=== PATIENT | female | born 1955 | race American Indian/Alaskan Native ===

== ENCOUNTER 2017-03-18 07:19 | Inpatient (IN) | payer BC ==
[2017-03-18 09:04] LABS: Basophils % (Auto) 0.3 % (0.0-1.8); Eosinophils % (Auto) 0.5 % (0.0-4.3); Hematocrit 47.9 % (30.3-42.9); Hemoglobin 15.4 gm/dl (10.1-14.3); Mean Corpuscular HGB Conc 32 % (30-34); Mean Corpuscular Volume 75 fl (79-97); Platelet Count 396 K/mm3 (140-440); Red Blood Count 6.36 M/mm3 (3.65-5.03); Red Cell Distribution Width 14.8 % (13.2-15.2); White Blood Count 18.4 K/mm3 (4.5-11.0)
[2017-03-18 09:13] LABS: Mean Corpuscular Hemoglobin 24 pg (28-32)
[2017-03-18 09:22] LABS: Anion Gap 19 mmol/L; BUN/Creatinine Ratio 28.57; Blood Urea Nitrogen 20 mg/dL (7-17); Calcium 10.3 mg/dL (8.4-10.2); Carbon Dioxide 30 mmol/L (22-30); Chloride 93.9 mmol/L (98-107); Glucose 199 mg/dL (65-100); Potassium 3.6 mmol/L (3.6-5.0); Sodium 139 mmol/L (137-145)
[2017-03-18] MEDS ORDERED: NACL 0.9% 1000 ML 1,000 ML IV ONE ×2 (10:24→11:27)
[2017-03-18] MEDS ORDERED: ZOFRAN IV ONE (10:24)
[2017-03-18] MEDS ORDERED: DILAUDID IV ONE ×2 (10:24→13:50)
[2017-03-18] MEDS ORDERED: PEPCID IV ONE (10:25)
[2017-03-18] MEDS ORDERED: BENTYL IM ONE (10:25)
--- NOTE | 2017-03-18 10:26 | Emergency Department Report ---
ED General Adult HPI - General Chief complaint: Nausea/Vomiting/Diarrhea Stated complaint: ABD PAIN/DIARRHEA/NAUSEA/VOMITING Time Seen by Provider: 03/18/17 10:10 Source: patient, RN notes reviewed, old records reviewed Mode of arrival: Ambulatory Limitations: No Limitations - History of Present Illness Initial comments: This is a 61-year-old female. She is previously unknown to me. Her primary care doctor's Dr. Ballesteros. Past medical history includes COPD/asthma, hypertension, asthma, arthritis, history of hysterectomy. The patient presents to ER complaining of suprapubic and diffuse abdominal pain , nausea, vomiting and diarrhea. The pain started first, then was followed by watery/brown/green diarrhea, then followed by emesis, which is green, clear, and reddish. The pain has been constant for the past 3 days. It increases with palpation, and it decreases with rest. The patient also endorses some nonspecific chest tightness which has been present for the past 3 days. The tightness does not radiate to the back, arms or neck. -: Gradual Location: chest, abdomen Quality: aching Consistency: constant Improves with: rest Worsens with: movement Associated Symptoms: chest pain, loss of appetite, malaise, nausea/vomiting, weakness - Related Data Home Medications Medication Instructions Recorded Confirmed Last Taken ALPRAZolam [Xanax TAB] 1 mg PO QHS 03/18/17 03/18/17 03/17/17 Kbngr-Jgjcn-Phjk 5-160-25 mg 1 tab PO DAILY 03/18/17 03/18/17 03/17/17 Ibuprofen [Motrin] 800 mg PO Q8HR PRN 03/18/17 03/18/17 03/17/17 Tizanidine HCl [Zanaflex] 6 mg PO TID PRN 03/18/17 03/18/17 03/17/17 methylPREDNISolone [Medrol] 4 mg PO DAILY 03/18/17 03/18/17 03/17/17 oxyCODONE /ACETAMINOPHEN [Percocet 1 tab PO Q6HR PRN 03/18/17 03/18/17 03/17/17 5/325] traMADol [Ultram] 50 mg PO Q4HR PRN 03/18/17 03/18/17 03/17/17 Previous Rx's Medication Instructions Recorded Last Taken Type Montelukast [Singulair] 10 mg PO QHS #30 tablet 06/22/16 03/17/17 Rx Allergies Allergy/AdvReac Type Severity Reaction Status Date / Time amoxicillin trihydrate Allergy Vomiting Verified 06/07/14 08:09 [From Augmentin] morphine Allergy Headache Verified 06/07/14 08:09 potassium clavulanate Allergy Vomiting Verified 06/07/14 08:09 [From Augmentin] ED Review of Systems ROS: Stated complaint: ABD PAIN/DIARRHEA/NAUSEA/VOMITING Other details as noted in HPI Constitutional: malaise, weakness Eyes: denies: vision change Respiratory: cough Cardiovascular: chest pain Gastrointestinal: abdominal pain, nausea, vomiting, diarrhea Genitourinary: denies: dysuria Musculoskeletal: arthralgia, myalgia Neurological: weakness. denies: as per HPI ED Past Medical Hx - Past Medical History Previous Medical History?: Yes Hx Hypertension: Yes Hx Congestive Heart Failure: No Hx Diabetes: No Hx Arthritis: Yes Hx Asthma: Yes Additional medical history: Right ovarian cyst - Surgical History Past Surgical History?: Yes Hx Appendectomy: Yes Additional Surgical History: Bilateral hip replacement; revision left hip replacement; hysterectomy - Social History Smoking Status: Former Smoker Substance Use Type: Non Opiate Pain, Prescribed - Medications Home Medications: Home Medications Medication Instructions Recorded Confirmed Last Taken Type Montelukast [Singulair] 10 mg PO QHS #30 tablet 06/22/16 03/18/17 03/17/17 Rx ALPRAZolam [Xanax TAB] 1 mg PO QHS 03/18/17 03/18/17 03/17/17 History Htkfh-Zxcre-Iage 5-160-25 mg 1 tab PO DAILY 03/18/17 03/18/17 03/17/17 History Ibuprofen [Motrin] 800 mg PO Q8HR PRN 03/18/17 03/18/17 03/17/17 History Tizanidine HCl [Zanaflex] 6 mg PO TID PRN 03/18/17 03/18/17 03/17/17 History methylPREDNISolone [Medrol] 4 mg PO DAILY 03/18/17 03/18/17 03/17/17 History oxyCODONE /ACETAMINOPHEN [Percocet 1 tab PO Q6HR PRN 03/18/17 03/18/17 03/17/17 History 5/325] traMADol [Ultram] 50 mg PO Q4HR PRN 03/18/17 03/18/17 03/17/17 History ED Physical Exam - General Limitations: No Limitations General appearance: alert, in no apparent distress - Head Head exam: Present: atraumatic, normocephalic - Eye Eye exam: Present: normal appearance - ENT ENT exam: Present: normal exam, normal orophraynx, mucous membranes moist - Neck Neck exam: Present: normal inspection, full ROM. Absent: tenderness, meningismus - Respiratory Respiratory exam: Present: normal lung sounds bilaterally. Absent: respiratory distress, wheezes, rales, rhonchi, stridor, chest wall tenderness - Cardiovascular Cardiovascular Exam: Present: normal rhythm, tachycardia, normal heart sounds. Absent: systolic murmur, diastolic murmur, rubs, gallop - GI/Abdominal GI/Abdominal exam: Present: soft, tenderness, normal bowel sounds. Absent: distended, guarding, rebound, rigid, pulsatile mass - Extremities Exam Extremities exam: Present: normal inspection, full ROM, normal capillary refill. Absent: pedal edema, joint swelling, calf tenderness - Back Exam Back exam: Present: normal inspection, full ROM. Absent: tenderness, CVA tenderness (R), CVA tenderness (L), muscle spasm, paraspinal tenderness, vertebral tenderness - Neurological Exam Neurological exam: Present: alert, oriented X3, normal gait, other (Extraocular movements intact. Tongue midline. No facial droop. Facial sensation intact to light touch in the V1, V2, V3 distribution bilaterally. 5 and 5 strength in 4 extremities.. Sensation is intact to light touch in 4 extremities.). Absent : motor sensory deficit - Psychiatric Psychiatric exam: Present: normal affect, normal mood - Skin Skin exam: Present: warm, dry, intact, normal color. Absent: rash ED Course Vital Signs 03/18/17 03/18/17 03/18/17 08:02 10:03 10:10 Temperature 98.9 F Pulse Rate 128 H 124 H 127 H Respiratory 18 17 16 Rate Blood Pressure 153/107 154/98 O2 Sat by Pulse 98 94 96 Oximetry 03/18/17 03/18/17 03/18/17 10:20 10:30 10:40 Temperature Pulse Rate 123 H 122 H Respiratory 15 18 Rate Blood Pressure 154/98 154/98 154/98 O2 Sat by Pulse 94 95 91 Oximetry 03/18/17 03/18/17 03/18/17 10:59 11:27 11:30 Temperature Pulse Rate 112 H 105 H Respiratory 18 17 13 Rate Blood Pressure 136/81 148/92 O2 Sat by Pulse 98 93 96 Oximetry 03/18/17 03/18/17 03/18/17 11:40 11:50 12:00 Temperature Pulse Rate 101 H 101 H 108 H Respiratory 18 13 Rate Blood Pressure 148/92 148/92 O2 Sat by Pulse 95 98 95 Oximetry 03/18/17 03/18/17 03/18/17 12:10 12:20 12:30 Temperature Pulse Rate 101 H 101 H 99 H Respiratory 16 18 15 Rate Blood Pressure O2 Sat by Pulse 97 96 96 Oximetry 03/18/17 03/18/17 03/18/17 12:40 12:50 13:00 Temperature Pulse Rate 98 H 103 H 105 H Respiratory 13 16 13 Rate Blood Pressure 148/92 148/92 O2 Sat by Pulse 97 96 98 Oximetry 03/18/17 03/18/17 03/18/17 14:00 15:00 16:00 Temperature Pulse Rate 112 H 100 H 99 H Respiratory 13 16 12 Rate Blood Pressure 152/89 130/86 121/73 O2 Sat by Pulse 92 95 97 Oximetry - Reevaluation(s) Reevaluation #1: 03/18/17 11:24 Differential diagnosis: Colitis, diverticulitis, urinary tract infection, appendicitis, perforated viscus, pneumonia, pulmonary embolus, acute coronary syndrome Assessment and plan: 61-year-old female with diffuse abdominal pain, nausea, vomiting, diarrhea, leukocytosis and tachycardia. She meets systemic inflammatory response syndrome criteria. Nonspecific chest pain as well. EKG abnormal, appears unchanged from prior, patient will be given normal saline, pain medication, nausea medication, x-ray of the chest is negative, lactic acid within normal limits, CT scan of the chest pending, CT scan of the abdomen and pelvis pending plan to admit for chest pain, systemic inflammatory response syndrome. 03/18/17 11:26 Reevaluation #2: 03/18/17 12:48 CT scan shows no pulmonary embolus or DVT/pneumonia. CT scan of the abdomen and pelvis demonstrates enteritis versus ileus versus nonspecific inflammatory process. Tachycardia still present although resolving. Pain is improved. Case is presented to the Hospital physician, Dr. Loaiza, who accepts patient Reevaluation #3: 03/18/17 13:46 As per patient request, I have contacted the primary care physician covering for her doctor, Dr. Oh, covering for Dr. Ballesteros. Dr. Ballesteros is out of town, and Dr. Oh is unable to admit the patient. He requested the hospital team admit the patient. The patient is informed ED Medical Decision Making - Lab Data Result diagrams: 03/18/17 08:43 03/18/17 08:43 Vital Signs 03/18/17 03/18/17 03/18/17 08:02 10:03 10:10 Temperature 98.9 F Pulse Rate 128 H 124 H 127 H Respiratory 18 17 16 Rate Blood Pressure 153/107 154/98 O2 Sat by Pulse 98 94 96 Oximetry 03/18/17 03/18/17 03/18/17 10:20 10:30 10:40 Temperature Pulse Rate 123 H 122 H Respiratory 15 18 Rate Blood Pressure 154/98 154/98 154/98 O2 Sat by Pulse 94 95 91 Oximetry 03/18/17 10:59 Temperature Pulse Rate Respiratory 18 Rate Blood Pressure O2 Sat by Pulse 98 Oximetry Lab Results 03/18/17 03/18/17 03/18/17 Range/Units 08:43 08:43 10:32 WBC 18.4 H (4.5-11.0) K/mm3 RBC 6.36 H (3.65-5.03) M/mm3 Hgb 15.4 H (10.1-14.3) gm/dl Hct 47.9 H (30.3-42.9) % MCV 75 L (79-97) fl MCH 24 L (28-32) pg MCHC 32 (30-34) % RDW 14.8 (13.2-15.2) % Plt Count 396 (140-440) K/mm3 Lymph % (Auto) 12.9 L (13.4-35.0) % Freestone % (Auto) 14.4 H (0.0-7.3) % Eos % (Auto) 0.5 (0.0-4.3) % Baso % (Auto) 0.3 (0.0-1.8) % Lymph # 2.4 (1.2-5.4) K/mm3 Freestone # 2.6 H (0.0-0.8) K/mm3 Eos # 0.1 (0.0-0.4) K/mm3 Baso # 0.1 (0.0-0.1) K/mm3 Seg Neutrophils % 71.9 H (40.0-70.0) % Seg Neutrophils # 13.2 H (1.8-7.7) K/mm3 PT 12.2 (12.2-14.9) Sec. INR 0.91 (0.87-1.13) Sodium 139 (137-145) mmol/L Potassium 3.6 (3.6-5.0) mmol/L Chloride 93.9 L (98-107) mmol/L Carbon Dioxide 30 (22-30) mmol/L Anion Gap 19 mmol/L BUN 20 H (7-17) mg/dL Creatinine 0.7 (0.7-1.2) mg/dL Estimated GFR > 60 ml/min BUN/Creatinine Ratio 28.57 % Glucose 199 H (65-100) mg/dL Lactic Acid (0.7-2.0) mmol/L Calcium 10.3 H (8.4-10.2) mg/dL Total Bilirubin (0.1-1.2) mg/dL AST (5-40) units/L ALT (7-56) units/L Alkaline Phosphatase (35-129) units/L Total Protein (6.3-8.2) g/dL Albumin (3.9-5) g/dL Albumin/Globulin Ratio % Lipase (13-60) units/L 03/18/17 03/18/17 Range/Units 10:32 10:40 WBC (4.5-11.0) K/mm3 RBC (3.65-5.03) M/mm3 Hgb (10.1-14.3) gm/dl Hct (30.3-42.9) % MCV (79-97) fl MCH (28-32) pg MCHC (30-34) % RDW (13.2-15.2) % Plt Count (140-440) K/mm3 Lymph % (Auto) (13.4-35.0) % Freestone % (Auto) (0.0-7.3) % Eos % (Auto) (0.0-4.3) % Baso % (Auto) (0.0-1.8) % Lymph # (1.2-5.4) K/mm3 Freestone # (0.0-0.8) K/mm3 Eos # (0.0-0.4) K/mm3 Baso # (0.0-0.1) K/mm3 Seg Neutrophils % (40.0-70.0) % Seg Neutrophils # (1.8-7.7) K/mm3 PT (12.2-14.9) Sec. INR (0.87-1.13) Sodium (137-145) mmol/L Potassium (3.6-5.0) mmol/L Chloride (98-107) mmol/L Carbon Dioxide (22-30) mmol/L Anion Gap mmol/L BUN (7-17) mg/dL Creatinine (0.7-1.2) mg/dL Estimated GFR ml/min BUN/Creatinine Ratio % Glucose (65-100) mg/dL Lactic Acid 2.00 (0.7-2.0) mmol/L Calcium (8.4-10.2) mg/dL Total Bilirubin 0.80 (0.1-1.2) mg/dL AST 23 (5-40) units/L ALT 34 (7-56) units/L Alkaline Phosphatase 129 (35-129) units/L Total Protein 8.8 H (6.3-8.2) g/dL Albumin 4.7 (3.9-5) g/dL Albumin/Globulin Ratio 1.1 % Lipase 10 L (13-60) units/L - EKG Data -: EKG Interpreted by Me Rate: tachycardia - EKG Data 03/18/17 11:27 sinus tachycardia, left axis deviation, left ventricular hypertrophy, left axis deviation, left anterior fascicular block, right bundle branch block, abnormal EKG, not morphologically consistent with STEMI, appears unchanged when compared to prior from 03/18/2017. - Radiology Data Radiology results: pending, image reviewed interpreted by me: X-ray the chest is negative. Critical care attestation.: If time is entered above; I have spent that time in minutes in the direct care of this critically ill patient, excluding procedure time. ED Disposition Clinical Impression: SIRS (systemic inflammatory response syndrome), Abdominal pain, Chest pain Disposition: OP ADMIT IP TO THIS HOSP Is pt being admited?: Yes Does the pt Need Aspirin: Yes Condition: Good
[2017-03-18] MEDS ORDERED: NACL ONE (10:41)
--- NOTE | 2017-03-18 11:06 | XRay Report ---
CHEST ONE VIEW INDICATION: Chest pain. COMPARISON: June 2016. FINDINGS: Portable, single, frontal chest radiograph demonstrates normal cardiomediastinal silhouette. Clear lungs. Thoracic spondylosis. Extrinsic EKG leads. CONCLUSION: No acute disease in the chest. Thank you for the opportunity to participate in this patient's care.
[2017-03-18 11:10] LABS: INR 0.91 (0.87-1.13)
[2017-03-18 11:15] LABS: Alanine Aminotransferase 34 units/L (7-56); Albumin 4.7 g/dL (3.9-5); Albumin/Globulin Ratio 1.1 %; Alkaline Phosphatase 129 units/L (35-129); Lipase 10 units/L (13-60); Total Protein 8.8 g/dL (6.3-8.2)
[2017-03-18] MEDS ORDERED: LEVAQUIN 750MG/150ML 750 MG/150 ML BAG IV ONE (11:28)
[2017-03-18 11:34] LABS: Bilirubin,Direct < 0.2 mg/dL (0-0.2)
[2017-03-18] MEDS ORDERED: FLAGYL 500 MG/100 ML 500 MG/100 ML BAG IV SCH (12:00)
--- NOTE | 2017-03-18 12:09 | Cat Scan Report ---
CTA CHEST CT ABDOMEN AND PELVIS WITH CONTRAST INDICATION: Chest pain. COMPARISON: 06/19/2016 chest CTA and 06/07/[address] FINDINGS: Abdomen and pelvis CT performed following intravenous administration of 100 cc of Omnipaque 300. CHEST: Stable heart size. Few coronary and aortic atherosclerotic calcifications. No effusion or size significant adenopathy. Patent central airway. No aortic aneurysm or dissection. No focal suspicious pulmonary arterial filling defects. Normal size thyroid, though heterogeneous with few small intrinsic hypodensities suspected measuring up to 4 mm in the isthmus. Slight bibasilar atelectasis. ABDOMEN: Much interval decrease in partly exophytic left hepatic hemangioma, now approximately 3.9 cm AP x 4.8 cm transverse, axial image 327, series 2 and 4.6 cm craniocaudal. No other focal suspicious hepatic or splenic lesions. No biliary dilatation. Left hepatic lobe tip extends well into the left upper quadrant. Numerous gallstones now contain air. Pancreas, adrenals, nonaneurysmal abdominal aorta with few atherosclerotic calcifications and IVC within normal limits. Nonhydronephrotic kidneys with few subcentimeter, indeterminate bilateral renal cortical hypodensities. No ascites or size significant adenopathy. Nonopacified GI tract evaluation limited. Fluid noted in the stomach and throughout small and large bowel. Proximal small bowel decompressed. Mid to distal small bowel though diffusely fluid-filled with caliber up to approximately 2.6 cm and mild wall prominence/thickening, greatest along the distal small bowel loops noted in the lower abdomen/pelvis as on axial image 532, series 2, amongst others. PELVIS: In addition to above, liquid contents also seen within nondistended rectosigmoid, suboptimally distended with slight exaggerated wall thickness. Bilateral hip arthroplasty streak artifact limits exam. Uterus surgically absent with few small pelvic phleboliths. Urinary bladder not adequately distended or assessed. No free fluid or significant adenopathy. Demineralized bones with multilevel spinal degenerative changes, including most spurring mid to lower thoracic with some disc degeneration/vacuum phenomena. Lower lumbar facet arthropathy as well. CONCLUSION: 1. No CT evidence of pulmonary embolism or significant acute chest process. 2. Long segment mid and distal small bowel wall thickening may represent ileitis, possibly infectious or inflammatory. Slight small bowel ileus may be developing. Entire bowel also noted fluid-filled, as described. 3. Regressing left hepatic exophytic hemangioma and interval development of air within known gallstones with various other incidental findings, as detailed above. Thank you for the opportunity to participate in this patient's care.
--- NOTE | 2017-03-18 12:21 | Admit Criteria Form ---
Admission Criteria Documentation: SEPSIS and OTHER FEBRILE ILLNESS, W/O FOCAL INFECTION Clinical Indications for Admission to Inpatient Care ( Place 'X' for any and all applicable criteria): Admission is indicated for ANY ONE of the following (1)(2)(3)(4): [X] I. Bacteremia [ ]II. Suspected or identified specific infection requiring hospitalization (eg, meningitis, endocarditis) [ ]III. Hemodynamic instability [ ]IV. Altered mental status [ ]V. Failure or unavailability of outpatient antimicrobial treatment [ ]. Hypoxemia [ ]VII. Seizures [ ]VIII. High-risk febrile neutropenia [ ]IX. Need for parenteral antibiotic in patient who is likely to abuse vascular access device (eg, injection drug user) [A](7) [ ]X. Temperature greater than 104.9 degrees F (40.5 degrees C) (oral) [X]XI. Inpatient admission required rather than observation care because of ANY ONE of the following: [X]1) Specific infection identified that is too severe for outpatient treatment or observation care trial [ ]2) Metabolic disorder (eg, hypoglycemia, hyperglycemia, metabolic acidosis) that is severe or persistent [ ]3) Temperature greater than 103.1 degrees F (39.5 degrees C) ( oral) that is not responsive to observation care treatment [ ]4) IV fluid to replace significant ongoing (eg, for over 24 hours) losses (> 3 L/m2 per day) [ ]5) Supplemental oxygen or respiratory treatments for over 24 hours that is performable only in acute inpatient setting [ ]6) Parenteral nutrition regimen need that must be implemented on inpatient basis [ ]7) Strict or protective (eg, laminar flow) isolation [X]8) Other condition, treatment or monitoring requiring inpatient admission Extended stay beyond goal length of stay may be needed for(1)(3) [ ]a) Sepsis or septic shock(22) [ ]b) Positive blood cultures [ ]c) Insufficient oral intake [ ]d) High-risk febrile neutropenia(29)(30) [ ]e) Continued fever and clinical instability [ ]f) Clinically active comorbid illness (e.g,heart failure, renal failure , diabetes) The original [facility] content created by [employer] has been revised. The portions of the content which have been revised are identified through the use of italic text or in bold, and [employer] has neither reviewed nor approved the modified material. All other unmodified content is copyright [facility]. Please see references footnoted in the original [facility] edition 2016 Admission Criteria Met: Yes
[2017-03-18] MEDS ORDERED: BABY ASPIRIN PO ONE (12:49)
[2017-03-18 13:06] LABS: Bilirubin,Urine NEG (Negative); Blood,Urine NEG (Negative); Ketones,Urine NEG (Negative); Leukocyte Esterase,Urine NEG (Negative); Mucus,Urine FEW /HPF; Nitrite,Urine NEG (Negative); Urobilinogen,Urine < 2.0 mg/dL (<2.0)
[2017-03-18] MEDS ORDERED: ZOFRAN ONE (14:13)
[2017-03-18] MEDS ORDERED: TIZANIDINE HCL 6 MG PO PRN (14:24)
[2017-03-18] MEDS ORDERED: PERCOCET 5/325 PO PRN (14:24)
[2017-03-18] MEDS ORDERED: ULTRAM PO PRN (14:24)
--- NOTE | 2017-03-18 14:57 | History and Physical Report ---
History of Present Illness Date of examination: 03/18/17 Chief complaint: Abdominal pain History of present illness: 61-year-old -[place] female who is looking into [facility] presented to the emergency department complaining of diffuse abdominal pain that started 2 days ago, crampy, 10 out of 10 in intensity, with no radiation, associated with intractable diarrhea and nausea, occasional vomiting. The diarrhea is watery, no blood mixed, with no relieving or aggravating factors. Patient also complains she has vomiting of blood 2. She is also complaining right-sided chest pain that is up by itself. Patient denied fever or chills. REVIEW OF SYSTEMS: GENERAL: no weight change, no fatigue, no fever HEAD: no head ache EYES: no blurry vision, no acute visual loss EARS: no hearing loss, no discharge, no earache NOSE: no stuffiness, no sneezing, no discharge MOUTH, THROAT AND NECK: no bleeding gums, no sore throat, no swollen neck CARDIAC: no palpitations, no dyspnea on exertion, no orthopnea, no PND, no edema , + chest pain RESPIRATORY: no shortness of breath, no wheeze, no cough, no sputum, no hemoptysis, no asthma GI: + decreased appetite, + nausea, + vomiting, no dysphagia, + diarrhea, no constipation, + abdominal pain URINARY: no change in frequency, no urgency, no polyuria, no hematuria, no incontinence MUSCULOSKELETAL: no muscle weakness, no pain, no joint stiffness NEUROLOGIC: no loss of sensation/numbness, no tingling, no tremors, no weakness/ paralysis HEMATOLOGIC: no anemia, no easy bruising SKIN: no rashes ENDOCRINE: no heat/cold intolerance, no polyuria, no polydipsia, no thyroid problems, no diabetes PSYCHIATRIC: no anxiety, no depression, no suicidal ideations Past History Past Medical History: COPD, hypertension, hyperlipidemia Past Surgical History: appendectomy, hysterectomy, total hip replacement, Other (Oophorectomy) Social history: full code. denies: smoking, alcohol abuse, prescription drug abuse, IV drug use Family history: no significant family history Medications and Allergies Allergies Allergy/AdvReac Type Severity Reaction Status Date / Time amoxicillin trihydrate Allergy Vomiting Verified 06/07/14 08:09 [From Augmentin] morphine Allergy Headache Verified 06/07/14 08:09 potassium clavulanate Allergy Vomiting Verified 06/07/14 08:09 [From Augmentin] Home Medications Medication Instructions Recorded Confirmed Last Taken Type Montelukast [Singulair] 10 mg PO QHS #30 tablet 06/22/16 03/18/17 03/17/17 Rx ALPRAZolam [Xanax TAB] 1 mg PO QHS 03/18/17 03/18/17 03/17/17 History Rbtqh-Envyf-Xmhi 5-160-25 mg 1 tab PO DAILY 03/18/17 03/18/17 03/17/17 History Ibuprofen [Motrin] 800 mg PO Q8HR PRN 03/18/17 03/18/17 03/17/17 History Tizanidine HCl [Zanaflex] 6 mg PO TID PRN 03/18/17 03/18/17 03/17/17 History methylPREDNISolone [Medrol] 4 mg PO DAILY 03/18/17 03/18/17 03/17/17 History oxyCODONE /ACETAMINOPHEN [Percocet 1 tab PO Q6HR PRN 03/18/17 03/18/17 03/17/17 History 5/325] traMADol [Ultram] 50 mg PO Q4HR PRN 03/18/17 03/18/17 03/17/17 History Active Meds: Active Medications Alprazolam (Xanax) 1 mg PO QHS [facility] Hydromorphone HCl (Dilaudid) 0.5 mg IV Q3H PRN PRN Reason: Pain , Severe (7-10) Levofloxacin/Dextrose (Levaquin 750mg/150ml) 750 mg in 150 mls @ 100 mls/hr IV Q24HR [facility] PRN Reason: Protocol Metronidazole (Flagyl 500 Mg/100 Ml) 500 mg in 100 mls @ 100 mls/hr IV Q8HR [facility] Miscellaneous Medication (Nznkt-Xuwuk-Rcat 5-160-25 Mg) 1 tab PO DAILY [facility] Miscellaneous Medication (Tizanidine Hcl [Zanaflex]) 6 mg PO TID PRN PRN Reason: Muscle Spasm Montelukast Sodium (Singulair) 10 mg PO QHS [facility] Ondansetron HCl (Zofran) 4 mg IV Q8H PRN PRN Reason: N/V unrelieved by Reglan Oxycodone/Acetaminophen (Percocet 5/325) 1 tab PO Q6HR PRN PRN Reason: Pain Tramadol HCl (Ultram) 50 mg PO Q4HR PRN PRN Reason: Pain Exam - Physical Exam Narrative exam: Not in cardiopulmonary distress. The patient appeared well nourished and normally developed. Vital signs as documented. Head exam is unremarkable. No scleral icterus . Neck is without jugular venous distension, thyromegaly, or carotid bruits. Lungs are clear to auscultation. Cardiac exam reveals regular rate and Rhythm. Abdominal exam reveals hyperactive bowel sound, diffuse abdominal tenderness with no guarding or rigidity. Extremities are nonedematous and both femoral and pedal pulses are normal. 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 No focal weakness. - Constitutional Vitals: Temp Pulse Resp BP Pulse Ox 98.9 F 105 H 13 148/92 98 03/18/17 08:02 03/18/17 13:00 03/18/17 13:00 03/18/17 13:00 03/18/17 13:00 Results - Labs CBC & Chem 7: 03/18/17 08:43 03/18/17 08:43 Labs: Laboratory Last Values WBC 18.4 K/mm3 (4.5-11.0) H 03/18/17 08:43 RBC 6.36 M/mm3 (3.65-5.03) H 03/18/17 08:43 Hgb 15.4 gm/dl (10.1-14.3) H 03/18/17 08:43 Hct 47.9 % (30.3-42.9) H 03/18/17 08:43 MCV 75 fl (79-97) L 03/18/17 08:43 MCH 24 pg (28-32) L 03/18/17 08:43 MCHC 32 % (30-34) 03/18/17 08:43 RDW 14.8 % (13.2-15.2) 03/18/17 08:43 Plt Count 396 K/mm3 (140-440) 03/18/17 08:43 Lymph % (Auto) 12.9 % (13.4-35.0) L 03/18/17 08:43 Callahan % (Auto) 14.4 % (0.0-7.3) H 03/18/17 08:43 Eos % (Auto) 0.5 % (0.0-4.3) 03/18/17 08:43 Baso % (Auto) 0.3 % (0.0-1.8) 03/18/17 08:43 Lymph # 2.4 K/mm3 (1.2-5.4) 03/18/17 08:43 Callahan # 2.6 K/mm3 (0.0-0.8) H 03/18/17 08:43 Eos # 0.1 K/mm3 (0.0-0.4) 03/18/17 08:43 Baso # 0.1 K/mm3 (0.0-0.1) 03/18/17 08:43 Seg Neutrophils % 71.9 % (40.0-70.0) H 03/18/17 08:43 Seg Neutrophils # 13.2 K/mm3 (1.8-7.7) H 03/18/17 08:43 PT 12.2 Sec. (12.2-14.9) 03/18/17 10:32 INR 0.91 (0.87-1.13) 03/18/17 10:32 Sodium 139 mmol/L (137-145) 03/18/17 08:43 Potassium 3.6 mmol/L (3.6-5.0) 03/18/17 08:43 Chloride 93.9 mmol/L (98-107) L 03/18/17 08:43 Carbon Dioxide 30 mmol/L (22-30) 03/18/17 08:43 Anion Gap 19 mmol/L 03/18/17 08:43 BUN 20 mg/dL (7-17) H 03/18/17 08:43 Creatinine 0.7 mg/dL (0.7-1.2) 03/18/17 08:43 Estimated GFR > 60 ml/min 03/18/17 08:43 BUN/Creatinine Ratio 28.57 % 03/18/17 08:43 Glucose 199 mg/dL (65-100) H 03/18/17 08:43 Lactic Acid 1.80 mmol/L (0.7-2.0) 03/18/17 12:50 Calcium 10.3 mg/dL (8.4-10.2) H 03/18/17 08:43 Total Bilirubin 0.80 mg/dL (0.1-1.2) 03/18/17 10:32 Direct Bilirubin < 0.2 mg/dL (0-0.2) 03/18/17 10:32 AST 23 units/L (5-40) 03/18/17 10:32 ALT 34 units/L (7-56) 03/18/17 10:32 Alkaline Phosphatase 129 units/L (35-129) 03/18/17 10:32 Troponin T < 0.010 ng/mL (0.00-0.029) 03/18/17 08:43 Total Protein 8.8 g/dL (6.3-8.2) H 03/18/17 10:32 Albumin 4.7 g/dL (3.9-5) 03/18/17 10:32 Albumin/Globulin Ratio 1.1 % 03/18/17 10:32 Lipase 10 units/L (13-60) L 03/18/17 10:32 Urine Color Yellow (Yellow) 03/18/17 12:15 Urine Turbidity Clear (Clear) 03/18/17 12:15 Urine pH 7.0 (5.0-7.0) 03/18/17 12:15 Ur Specific [place] > 1.059 (1.003-1.030) H 03/18/17 12:15 Urine Protein 30 mg/dl mg/dL (Negative) 03/18/17 12:15 Urine Glucose (UA) Neg mg/dL (Negative) 03/18/17 12:15 Urine Ketones Neg mg/dL (Negative) 03/18/17 12:15 Urine Blood Neg (Negative) 03/18/17 12:15 Urine Nitrite Neg (Negative) 03/18/17 12:15 Urine Bilirubin Neg (Negative) 03/18/17 12:15 Urine Urobilinogen < 2.0 mg/dL (<2.0) 03/18/17 12:15 Ur Leukocyte Esterase Neg (Negative) 03/18/17 12:15 Urine WBC (Auto) 1.0 /HPF (0.0-6.0) 03/18/17 12:15 Urine RBC (Auto) 4.0 /HPF (0.0-6.0) 03/18/17 12:15 U Epithel Cells (Auto) 2.0 /HPF (0-13.0) 03/18/17 12:15 Urine Mucus Few /HPF 03/18/17 12:15 Assessment and Plan Assessment and plan: Sepsis secondary to ileitis -Leukocytosis and tachycardia -Patient is a treated according to sepsis protocol on IV Levaquin and Flagyl -difficile is pending -Lactic acid level is normal so there is no need to repeat it, blood culture is pending Hematemesis - Consult GI - Iv pantoprazole Hypertension - Continue home medication COPD/asthma - Continue her meds DVT prophylaxis - SCDs because of hematemesis Disposition -Admit to medical floor. Advance Directives: Yes VTE prophylaxis?: Mechanical Reason for no VTE Prophylaxis: Bleeding Plan of care discussed with patient/family: Yes
[2017-03-18] MEDS: NACL 0.9% 1000 ML 1,000 ML IV ONE ×2 (17:29→17:33)
[2017-03-18] MEDS ORDERED: ZANAFLEX PO PRN (17:46)
[2017-03-18] MEDS: DILAUDID IV PRN ×2 (20:17→23:46)
[2017-03-18] MEDS: NACL 0.9% 1000 ML 1,000 ML IV SCH (20:18)
[2017-03-18] MEDS: PROTONIX IV SCH (22:43)
[2017-03-18] MEDS: ZOFRAN IV PRN (22:43)
[2017-03-18] MEDS: XANAX PO SCH (22:43)
[2017-03-18] MEDS: FLAGYL 500 MG/100 ML 500 MG/100 ML BAG IV SCH (22:44)
[2017-03-18] MEDS: SINGULAIR PO SCH (22:44)
--- NOTE | 2017-03-19 00:28 | XRay Report ---
FINAL REPORT PROCEDURE: XR ABDOMEN 2V TECHNIQUE: Abdominal series, including supine and upright AP views. HISTORY: abdominal pain COMPARISON: No prior studies are available for comparison. FINDINGS: Bowel gas pattern:There are few loops of slightly dilated gas-filled small bowel in the mid abdomen. An ileus or enteritis is suspected. Bowel obstruction is not excluded on the basis of this single study.. Masses or calcifications:None . Bony structures:Bilateral hip prostheses are noted.. Pneumoperitoneum:None . Other:No significant findings . IMPRESSION: There are a few loops of slightly dilated gas-filled small bowel in mid abdomen may represent ileus or enteritis. Obstruction is not excluded..
[2017-03-19] MEDS: DILAUDID IV PRN ×5 (05:08→21:49)
[2017-03-19] MEDS: FLAGYL 500 MG/100 ML 500 MG/100 ML BAG IV SCH ×3 (05:08→21:51)
[2017-03-19 07:35] LABS: Hematocrit 37.3 % (30.3-42.9); Hemoglobin 12.2 gm/dl (10.1-14.3); Mean Corpuscular HGB Conc 33 % (30-34); Mean Corpuscular Volume 76 fl (79-97); Platelet Count 256 K/mm3 (140-440); Red Blood Count 4.94 M/mm3 (3.65-5.03); Red Cell Distribution Width 14.4 % (13.2-15.2); White Blood Count 7.5 K/mm3 (4.5-11.0)
[2017-03-19 07:41] LABS: Mean Corpuscular Hemoglobin 25 pg (28-32)
[2017-03-19 07:42] LABS: Alanine Aminotransferase 23 units/L (7-56); Albumin 3.4 g/dL (3.9-5); Alkaline Phosphatase 85 units/L (35-129); Anion Gap 16 mmol/L; Blood Urea Nitrogen 14 mg/dL (7-17); Calcium 8.3 mg/dL (8.4-10.2); Carbon Dioxide 24 mmol/L (22-30); Chloride 99.1 mmol/L (98-107); Glucose 116 mg/dL (65-100); Sodium 136 mmol/L (137-145); Total Protein 6.7 g/dL (6.3-8.2)
[2017-03-19] MEDS ORDERED: K-DUR PO NR (08:30)
[2017-03-19] MEDS: ZOFRAN IV PRN (09:21)
[2017-03-19 09:43] LABS: Basophils % (Manual) 0 % (0.0-1.8); Blastocytes % (Manual) 0 %; Diff Status Complete; Hypochromasia 1+
[2017-03-19] MEDS ORDERED: HYDROCHLOROTHIAZIDE PO SCH (10:00)
[2017-03-19] MEDS ORDERED: VALSARTAN PO SCH (10:00)
[2017-03-19] MEDS ORDERED: LEVAQUIN 750MG/150ML 750 MG/150 ML BAG IV SCH (10:00)
[2017-03-19] MEDS ORDERED: AMLODIPINE PO SCH (10:00)
--- NOTE | 2017-03-19 10:25 | Gastroenterology Consultation ---
Addendum entered and electronically signed by ALEJO CANCINO NP 03/19/17 10: 40: continue levaquin and flagyl Original Note: <ALEJO CANCINO - Last Filed: 03/19/17 10:37> History of Present Illness - Reason for Consult Consult date: 03/19/17 hematemesis Requesting physician: SHIRA FELDMAN - History of Present Illness Patient is a 61 y/o female who presented to the ER with c/o diffuse abd pain, diarrhea, and nausea w/ vomiting x 2 days. She reports 2 episodes of hematemesis at home. CT scan revealed ileitis. Stool was negative for C-diff. This morning pt was resting in bed, no acute distress. Still c/o generalized abd pain and nausea, but states diarrhea has improved with no BMs this morning and no episodes of vomiting overnight or this morning. No recent travel, abx use , or exposure to others who were ill. Admits to daily Ibuprofen at home. No hx or Fhx of IBD or colon CA. No hx of PUD or liver disease. No previous EGD. Reports last colonoscopy was approximately [address] Gonzalez which revealed polyps. Denies fever, wt loss, dysphagia, melena, consipation, or hematochezia. PMH significant for COPD, HTN, hyperlipidemia, and arthritis. Past History Past Medical History: arthritis, COPD, hypertension, hyperlipidemia Past Surgical History: appendectomy, hysterectomy, total hip replacement, Other (Oophorectomy) Social history: Lives alone, full code. denies: smoking, alcohol abuse, prescription drug abuse, IV drug use Family history: no significant family history Medications and Allergies Allergies Allergy/AdvReac Type Severity Reaction Status Date / Time amoxicillin trihydrate Allergy Vomiting Verified 06/07/14 08:09 [From Augmentin] morphine Allergy Headache Verified 06/07/14 08:09 potassium clavulanate Allergy Vomiting Verified 06/07/14 08:09 [From Augmentin] Home Medications Medication Instructions Recorded Confirmed Last Taken Type Montelukast [Singulair] 10 mg PO QHS #30 tablet 06/22/16 03/18/17 03/17/17 Rx ALPRAZolam [Xanax TAB] 1 mg PO QHS 03/18/17 03/18/17 03/17/17 History Vyxcm-Qzfia-Ebrv 5-160-25 mg 1 tab PO DAILY 03/18/17 03/18/17 03/17/17 History Ibuprofen [Motrin] 800 mg PO Q8HR PRN 03/18/17 03/18/17 03/17/17 History Tizanidine HCl [Zanaflex] 6 mg PO TID PRN 03/18/17 03/18/17 03/17/17 History methylPREDNISolone [Medrol] 4 mg PO DAILY 03/18/17 03/18/17 03/17/17 History oxyCODONE /ACETAMINOPHEN [Percocet 1 tab PO Q6HR PRN 03/18/17 03/18/17 03/17/17 History 5/325] traMADol [Ultram] 50 mg PO Q4HR PRN 03/18/17 03/18/17 03/17/17 History Active Meds: Active Medications Alprazolam (Xanax) 1 mg PO QHS [facility] Last Admin: 03/18/17 22:43 Dose: 1 mg Amlodipine Besylate (Norvasc) 5 mg PO QDAY [facility] Hydrochlorothiazide (Hctz) 25 mg PO QDAY [facility] Hydromorphone HCl (Dilaudid) 0.5 mg IV Q3H PRN PRN Reason: Pain , Severe (7-10) Last Admin: 03/19/17 09:20 Dose: 0.5 mg Levofloxacin/Dextrose (Levaquin 750mg/150ml) 750 mg in 150 mls @ 100 mls/hr IV Q24HR [facility] PRN Reason: Protocol Metronidazole (Flagyl 500 Mg/100 Ml) 500 mg in 100 mls @ 100 mls/hr IV Q8HR [facility] Last Admin: 03/19/17 05:08 Dose: 100 mls/hr Sodium Chloride (Nacl 0.9% 1000 Ml) 1,000 mls @ 100 mls/hr IV DIRECT [facility] Last Admin: 03/18/17 20:18 Dose: 100 mls/hr Montelukast Sodium (Singulair) 10 mg PO QHS [facility] Last Admin: 03/18/17 22:44 Dose: Not Given Ondansetron HCl (Zofran) 4 mg IV Q8H PRN PRN Reason: N/V unrelieved by Matt Last Admin: 03/19/17 09:21 Dose: 4 mg Oxycodone/Acetaminophen (Percocet 5/325) 1 tab PO Q6HR PRN PRN Reason: Pain Pantoprazole Sodium (Protonix) 40 mg IV BID [facility] Last Admin: 03/18/17 22:43 Dose: 40 mg Potassium Chloride (K-Dur) 40 meq PO ONCE NR Stop: 03/19/17 10:30 Tizanidine HCl (Zanaflex) 6 mg PO TID PRN PRN Reason: Muscle Spasm Tramadol HCl (Ultram) 50 mg PO Q4HR PRN PRN Reason: Pain Valsartan (Diovan) 160 mg PO QDAY [facility] Review of Systems - Review of Systems All systems: negative Gastrointestinal: abdominal pain, nausea, vomiting, diarrhea, hematemesis Exam - Constitutional Vital Signs: Temp Pulse Resp BP Pulse Ox 99.2 F 91 H 20 153/100 93 03/19/17 09:15 03/19/17 09:15 03/19/17 09:15 03/19/17 09:15 03/19/17 09:15 General appearance: no acute distress, obese - EENT Eyes: PERRL, EOM intact ENT: hearing intact - Neck Neck: supple, normal ROM, no masses or JVD - Respiratory Respiratory: bilateral: diminished (anterior) - Cardiovascular Rhythm: regular Heart Sounds: Present: S1 & S2 Extremities: No edema - Gastrointestinal General gastrointestinal: Present: soft, tender (generalized), non-distended, normal bowel sounds - Integumentary Integumentary: Present: warm, dry - Neurologic Neurological: alert and oriented x3 - Psychiatric Psychiatric: appropriate mood/affect, cooperative - Labs CBC & Chem 7: 03/19/17 06:56 03/19/17 06:56 Lab Results: Laboratory Results - last 24 hr 03/18/17 03/18/17 03/19/17 12:50 23:54 06:56 WBC 7.5 RBC 4.94 Hgb 12.2 D Hct 37.3 D MCV 76 L MCH 25 L MCHC 33 RDW 14.4 Plt Count 256 Nelson % (Auto) Fiberglass Luggage Molder Add Manual Diff Complete Total Counted 100 Seg Neuts % (Manual) 54.0 Band Neutrophils % 6.0 Lymphocytes % (Manual) 26.0 Reactive Lymphs % (Man) 0 Monocytes % (Manual) 13.0 H Eosinophils % (Manual) 1.0 Basophils % (Manual) 0 Metamyelocytes % 0 Myelocytes % 0 Promyelocytes % 0 Blast Cells % 0 Nucleated RBC % Not Reportable Seg Neutrophils # Man 4.1 Band Neutrophils # 0.5 Lymphocytes # (Manual) 2.0 Abs React Lymphs (Man) 0.0 Monocytes # (Manual) 1.0 H Eosinophils # (Manual) 0.1 Basophils # (Manual) 0.0 Metamyelocytes # 0.0 Myelocytes # 0.0 Promyelocytes # 0.0 Blast Cells # 0.0 WBC Morphology Not Reportable Hypersegmented Neuts Not Reportable Hyposegmented Neuts Not Reportable Hypogranular Neuts Not Reportable Smudge Cells Not Reportable Toxic Granulation Not Reportable Toxic Vacuolation Not Reportable Dohle Bodies Not Reportable Pelger-Huet Anomaly Not Reportable Keri Rods Not Reportable Platelet Estimate Appears normal Clumped Platelets Not Reportable Plt Clumps, EDTA Not Reportable Large Platelets Not Reportable Giant Platelets Not Reportable Platelet Satelliting Not Reportable Plt Morphology Comment Not Reportable RBC Morphology Not Reportable Dimorphic RBCs Not Reportable Polychromasia Not Reportable Hypochromasia 1+ Poikilocytosis Not Reportable Anisocytosis Not Reportable Microcytosis Not Reportable Macrocytosis Not Reportable Spherocytes Not Reportable Pappenheimer Bodies Not Reportable Sickle Cells Not Reportable Target Cells Not Reportable Tear Drop Cells Not Reportable Ovalocytes Not Reportable Helmet Cells Not Reportable Macario-[place] Bodies Not Reportable [place] Rings Not Reportable Marbin Cells Not Reportable Bite Cells Not Reportable Crenated Cell Not Reportable Elliptocytes Not Reportable Acanthocytes (Spur) Not Reportable Rouleaux Not Reportable Hemoglobin C Crystals Not Reportable Schistocytes Not Reportable Malaria parasites Not Reportable Adrian Bodies Not Reportable Hem Pathologist Commnt No Sodium Potassium Chloride Carbon Dioxide Anion Gap BUN Creatinine Estimated GFR BUN/Creatinine Ratio Glucose Lactic Acid 1.80 1.10 Calcium Total Bilirubin AST ALT Alkaline Phosphatase Total Protein Albumin Albumin/Globulin Ratio 03/19/17 06:56 WBC RBC Hgb Hct MCV MCH MCHC RDW Plt Count Nelson % (Auto) Add Manual Diff Total Counted Seg Neuts % (Manual) Band Neutrophils % Lymphocytes % (Manual) Reactive Lymphs % (Man) Monocytes % (Manual) Eosinophils % (Manual) Basophils % (Manual) Metamyelocytes % Myelocytes % Promyelocytes % Blast Cells % Nucleated RBC % Seg Neutrophils # Man Band Neutrophils # Lymphocytes # (Manual) Abs React Lymphs (Man) Monocytes # (Manual) Eosinophils # (Manual) Basophils # (Manual) Metamyelocytes # Myelocytes # Promyelocytes # Blast Cells # WBC Morphology Hypersegmented Neuts Hyposegmented Neuts Hypogranular Neuts Smudge Cells Toxic Granulation Toxic Vacuolation Dohle Bodies Pelger-Huet Anomaly Keri Rods Platelet Estimate Clumped Platelets Plt Clumps, EDTA Large Platelets Giant Platelets Platelet Satelliting Plt Morphology Comment RBC Morphology Dimorphic RBCs Polychromasia Hypochromasia Poikilocytosis Anisocytosis Microcytosis Macrocytosis Spherocytes Pappenheimer Bodies Sickle Cells Target Cells Tear Drop Cells Ovalocytes Helmet Cells Macario-[place] Bodies [place] Rings [place] Cells Bite Cells Crenated Cell Elliptocytes Acanthocytes (Spur) Rouleaux Hemoglobin C Crystals Schistocytes Malaria parasites Adrian Bodies Hem Pathologist Commnt Sodium 136 L Potassium 3.0 L Chloride 99.1 Carbon Dioxide 24 Anion Gap 16 BUN 14 Creatinine 0.5 L Estimated GFR > 60 BUN/Creatinine Ratio 28.00 Glucose 116 H Lactic Acid Calcium 8.3 L D Total Bilirubin 1.00 AST 17 ALT 23 Alkaline Phosphatase 85 Total Protein 6.7 D Albumin 3.4 L Albumin/Globulin Ratio 1.0 Assessment and Plan 1.hematemesis 2.N/V 3.diarrhea 4.ileitis -Temp 99.2 -WBC 7.5-trended down from 18.4 -HGB 12.2 -stool- occult positive, negative for c-diff -CT scan revealed ileitis -etiology unclear- possible inflammatory vs infectious -clinically pt still c/o generalized abd pain and nausea today but states diarrhea has improved and denies vomiting or any further episodes of hematemesis or active signs of bleeding -currently hemodynamically stable -continue to monitor H&H and transfuse as needed -continue PPI -continue supportive care of IVFs, pain management, antimetics, and f/u labs -will order stool for leukocytes and a culture -diet- clear liquids today, then NPO after MN -Will schedule EGD for tomorrow -will follow <VICKIE RIVERA - Last Filed: 03/19/17 16:24> Medications and Allergies Active Meds: Active Medications Alprazolam (Xanax) 1 mg PO QHS [facility] Last Admin: 03/18/17 22:43 Dose: 1 mg Amlodipine Besylate (Norvasc) 5 mg PO QDAY [facility] Last Admin: 03/19/17 11:01 Dose: 5 mg Hydrochlorothiazide (Hctz) 25 mg PO QDAY [facility] Last Admin: 03/19/17 11:01 Dose: 25 mg Hydromorphone HCl (Dilaudid) 1 mg IV Q3H PRN PRN Reason: Pain , Severe (7-10) Levofloxacin/Dextrose (Levaquin 750mg/150ml) 750 mg in 150 mls @ 100 mls/hr IV Q24HR [facility] PRN Reason: Protocol Last Admin: 03/19/17 11:00 Dose: 100 mls/hr Metronidazole (Flagyl 500 Mg/100 Ml) 500 mg in 100 mls @ 100 mls/hr IV Q8HR [facility] Last Admin: 03/19/17 15:09 Dose: 100 mls/hr Sodium Chloride (Nacl 0.9% 1000 Ml) 1,000 mls @ 100 mls/hr IV DIRECT [facility] Last Admin: 03/19/17 11:00 Dose: 100 mls/hr Montelukast Sodium (Singulair) 10 mg PO QHS [facility] Last Admin: 03/18/17 22:44 Dose: Not Given Ondansetron HCl (Zofran) 4 mg IV Q8H PRN PRN Reason: N/V unrelieved by Matt Last Admin: 03/19/17 09:21 Dose: 4 mg Oxycodone/Acetaminophen (Percocet 5/325) 1 tab PO Q6HR PRN PRN Reason: Pain Pantoprazole Sodium (Protonix) 40 mg IV BID [facility] Last Admin: 03/19/17 12:34 Dose: 40 mg Tizanidine HCl (Zanaflex) 6 mg PO TID PRN PRN Reason: Muscle Spasm Tramadol HCl (Ultram) 50 mg PO Q4HR PRN PRN Reason: Pain Valsartan (Diovan) 160 mg PO QDAY [facility] Last Admin: 03/19/17 11:01 Dose: 160 mg Exam - Constitutional Vital Signs: Temp Pulse Resp BP Pulse Ox 98.3 F 94 H 18 136/72 93 03/19/17 12:40 03/19/17 12:40 03/19/17 12:40 03/19/17 12:40 03/19/17 09:15 - Labs CBC & Chem 7: 03/19/17 06:56 03/19/17 06:56 Lab Results: Laboratory Results - last 24 hr 03/18/17 03/19/17 03/19/17 23:54 06:56 06:56 WBC 7.5 RBC 4.94 Hgb 12.2 D Hct 37.3 D MCV 76 L MCH 25 L MCHC 33 RDW 14.4 Plt Count 256 Nelson % (Auto) Fiberglass Luggage Molder Add Manual Diff Complete Total Counted 100 Seg Neuts % (Manual) 54.0 Band Neutrophils % 6.0 Lymphocytes % (Manual) 26.0 Reactive Lymphs % (Man) 0 Monocytes % (Manual) 13.0 H Eosinophils % (Manual) 1.0 Basophils % (Manual) 0 Metamyelocytes % 0 Myelocytes % 0 Promyelocytes % 0 Blast Cells % 0 Nucleated RBC % Not Reportable Seg Neutrophils # Man 4.1 Band Neutrophils # 0.5 Lymphocytes # (Manual) 2.0 Abs React Lymphs (Man) 0.0 Monocytes # (Manual) 1.0 H Eosinophils # (Manual) 0.1 Basophils # (Manual) 0.0 Metamyelocytes # 0.0 Myelocytes # 0.0 Promyelocytes # 0.0 Blast Cells # 0.0 WBC Morphology Not Reportable Hypersegmented Neuts Not Reportable Hyposegmented Neuts Not Reportable Hypogranular Neuts Not Reportable Smudge Cells Not Reportable Toxic Granulation Not Reportable Toxic Vacuolation Not Reportable Dohle Bodies Not Reportable Pelger-Huet Anomaly Not Reportable Keri Rods Not Reportable Platelet Estimate Appears normal Clumped Platelets Not Reportable Plt Clumps, EDTA Not Reportable Large Platelets Not Reportable Giant Platelets Not Reportable Platelet Satelliting Not Reportable Plt Morphology Comment Not Reportable RBC Morphology Not Reportable Dimorphic RBCs Not Reportable Polychromasia Not Reportable Hypochromasia 1+ Poikilocytosis Not Reportable Anisocytosis Not Reportable Microcytosis Not Reportable Macrocytosis Not Reportable Spherocytes Not Reportable Pappenheimer Bodies Not Reportable Sickle Cells Not Reportable Target Cells Not Reportable Tear Drop Cells Not Reportable Ovalocytes Not Reportable Helmet Cells Not Reportable Macario-[place] Bodies Not Reportable [place] Rings Not Reportable Marbin Cells Not Reportable Bite Cells Not Reportable Crenated Cell Not Reportable Elliptocytes Not Reportable Acanthocytes (Spur) Not Reportable Rouleaux Not Reportable Hemoglobin C Crystals Not Reportable Schistocytes Not Reportable Malaria parasites Not Reportable Adrian Bodies Not Reportable Hem Pathologist Commnt No Sodium 136 L Potassium 3.0 L Chloride 99.1 Carbon Dioxide 24 Anion Gap 16 BUN 14 Creatinine 0.5 L Estimated GFR > 60 BUN/Creatinine Ratio 28.00 Glucose 116 H Lactic Acid 1.10 Calcium 8.3 L D Total Bilirubin 1.00 AST 17 ALT 23 Alkaline Phosphatase 85 Total Protein 6.7 D Albumin 3.4 L Albumin/Globulin Ratio 1.0 Assessment and Plan Patient seen and examined. Agree with note by Alejo Cancino. patient presenting with new onset abdominal pain, n/v, and diarrhea. Reports scant episodes of hematemesis (mixed with bile), otherwise no signs of further bleeding. H/H and vitals stable. Reviewed imaging of SB abnormlities. Likely with infectious etiology given presentation of symptoms and findings. Will plan for EGD tomorrow given hematemesis episodes, cont supportive care, and on empiric abx. Consider CT enterography (if available) vs UGI with SBFT to further evaluate small bowel abnormalities seen on imaging (r/o IBD, although lower suspicion). NPO at midnight, cont ppi.
[2017-03-19] MEDS: NACL 0.9% 1000 ML 1,000 ML IV SCH (11:00)
[2017-03-19] MEDS: HCTZ PO SCH (11:01)
[2017-03-19] MEDS: NORVASC PO SCH (11:01)
[2017-03-19] MEDS: DIOVAN PO SCH (11:01)
[2017-03-19] MEDS: PROTONIX IV SCH ×2 (12:34→21:51)
--- NOTE | 2017-03-19 14:54 | Progress Note ---
Assessment and Plan Assessment and plan: Sepsis secondary to ileitis -Resolving - Patient is being treated according to sepsis protocol on IV Levaquin and Flagyl -C. difficile is negative -Lactic acid level is normal Hematemesis - Consult GI - Iv pantoprazole - Patient will have EGD tomorrow Hypertension - Continue home medication COPD/asthma - Continue her meds DVT prophylaxis - SCDs because of hematemesis Disposition -Continue inpatient care. History Interval history: Patient was seen and evaluated this morning, abdominal pain is not well- controlled. Hospitalist Physical - Physical exam Narrative exam: Not in cardiopulmonary distress. The patient appeared well nourished and normally developed. Vital signs as documented. Head exam is unremarkable. No scleral icterus . Neck is without jugular venous distension, thyromegaly, or carotid bruits. Lungs are clear to auscultation. Cardiac exam reveals regular rate and Rhythm. Abdominal exam reveals hyperactive bowel sound, diffuse abdominal tenderness with no guarding or rigidity. Extremities are nonedematous and both femoral and pedal pulses are normal. 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 No focal weakness. - Constitutional Vitals: Temp Pulse Resp BP Pulse Ox 98.3 F 94 H 18 136/72 93 03/19/17 12:40 03/19/17 12:40 03/19/17 12:40 03/19/17 12:40 03/19/17 09:15 Results - Labs CBC & Chem 7: 03/19/17 06:56 03/19/17 06:56 Labs: Laboratory Last Values WBC 7.5 K/mm3 (4.5-11.0) 03/19/17 06:56 RBC 4.94 M/mm3 (3.65-5.03) 03/19/17 06:56 Hgb 12.2 gm/dl (10.1-14.3) D 03/19/17 06:56 Hct 37.3 % (30.3-42.9) D 03/19/17 06:56 MCV 76 fl (79-97) L 03/19/17 06:56 MCH 25 pg (28-32) L 03/19/17 06:56 MCHC 33 % (30-34) 03/19/17 06:56 RDW 14.4 % (13.2-15.2) 03/19/17 06:56 Plt Count 256 K/mm3 (140-440) 03/19/17 06:56 Lymph % (Auto) 12.9 % (13.4-35.0) L 03/18/17 08:43 [place] % (Auto) Zone Manager 03/19/17 06:56 Eos % (Auto) 0.5 % (0.0-4.3) 03/18/17 08:43 Baso % (Auto) 0.3 % (0.0-1.8) 03/18/17 08:43 Lymph # 2.4 K/mm3 (1.2-5.4) 03/18/17 08:43 [place] # 2.6 K/mm3 (0.0-0.8) H 03/18/17 08:43 Eos # 0.1 K/mm3 (0.0-0.4) 03/18/17 08:43 Baso # 0.1 K/mm3 (0.0-0.1) 03/18/17 08:43 Add Manual Diff Complete 03/19/17 06:56 Total Counted 100 03/19/17 06:56 Seg Neutrophils % 71.9 % (40.0-70.0) H 03/18/17 08:43 Seg Neuts % (Manual) 54.0 % (40.0-70.0) 03/19/17 06:56 Band Neutrophils % 6.0 % 03/19/17 06:56 Lymphocytes % (Manual) 26.0 % (13.4-35.0) 03/19/17 06:56 Reactive Lymphs % (Man) 0 % 03/19/17 06:56 Monocytes % (Manual) 13.0 % (0.0-7.3) H 03/19/17 06:56 Eosinophils % (Manual) 1.0 % (0.0-4.3) 03/19/17 06:56 Basophils % (Manual) 0 % (0.0-1.8) 03/19/17 06:56 Metamyelocytes % 0 % 03/19/17 06:56 Myelocytes % 0 % 03/19/17 06:56 Promyelocytes % 0 % 03/19/17 06:56 Blast Cells % 0 % 03/19/17 06:56 Nucleated RBC % Not Reportable 03/19/17 06:56 Seg Neutrophils # 13.2 K/mm3 (1.8-7.7) H 03/18/17 08:43 Seg Neutrophils # Man 4.1 K/mm3 (1.8-7.7) 03/19/17 06:56 Band Neutrophils # 0.5 K/mm3 03/19/17 06:56 Lymphocytes # (Manual) 2.0 K/mm3 (1.2-5.4) 03/19/17 06:56 Abs React Lymphs (Man) 0.0 K/mm3 03/19/17 06:56 Monocytes # (Manual) 1.0 K/mm3 (0.0-0.8) H 03/19/17 06:56 Eosinophils # (Manual) 0.1 K/mm3 (0.0-0.4) 03/19/17 06:56 Basophils # (Manual) 0.0 K/mm3 (0.0-0.1) 03/19/17 06:56 Metamyelocytes # 0.0 K/mm3 03/19/17 06:56 Myelocytes # 0.0 K/mm3 03/19/17 06:56 Promyelocytes # 0.0 K/mm3 03/19/17 06:56 Blast Cells # 0.0 K/mm3 03/19/17 06:56 WBC Morphology Not Reportable 03/19/17 06:56 Hypersegmented Neuts Not Reportable 03/19/17 06:56 Hyposegmented Neuts Not Reportable 03/19/17 06:56 Hypogranular Neuts Not Reportable 03/19/17 06:56 Smudge Cells Not Reportable 03/19/17 06:56 Toxic Granulation Not Reportable 03/19/17 06:56 Toxic Vacuolation Not Reportable 03/19/17 06:56 Dohle Bodies Not Reportable 03/19/17 06:56 Pelger-Huet Anomaly Not Reportable 03/19/17 06:56 Keri Rods Not Reportable 03/19/17 06:56 Platelet Estimate Appears normal 03/19/17 06:56 Clumped Platelets Not Reportable 03/19/17 06:56 Plt Clumps, EDTA Not Reportable 03/19/17 06:56 Large Platelets Not Reportable 03/19/17 06:56 Giant Platelets Not Reportable 03/19/17 06:56 Platelet Satelliting Not Reportable 03/19/17 06:56 Plt Morphology Comment Not Reportable 03/19/17 06:56 RBC Morphology Not Reportable 03/19/17 06:56 Dimorphic RBCs Not Reportable 03/19/17 06:56 Polychromasia Not Reportable 03/19/17 06:56 Hypochromasia 1+ 03/19/17 06:56 Poikilocytosis Not Reportable 03/19/17 06:56 Anisocytosis Not Reportable 03/19/17 06:56 Microcytosis Not Reportable 03/19/17 06:56 Macrocytosis Not Reportable 03/19/17 06:56 Spherocytes Not Reportable 03/19/17 06:56 Pappenheimer Bodies Not Reportable 03/19/17 06:56 Sickle Cells Not Reportable 03/19/17 06:56 Target Cells Not Reportable 03/19/17 06:56 Tear Drop Cells Not Reportable 03/19/17 06:56 Ovalocytes Not Reportable 03/19/17 06:56 Helmet Cells Not Reportable 03/19/17 06:56 Macario-[place] Bodies Not Reportable 03/19/17 06:56 [place] Rings Not Reportable 03/19/17 06:56 [place] Cells Not Reportable 03/19/17 06:56 Bite Cells Not Reportable 03/19/17 06:56 Crenated Cell Not Reportable 03/19/17 06:56 Elliptocytes Not Reportable 03/19/17 06:56 Acanthocytes (Spur) Not Reportable 03/19/17 06:56 Rouleaux Not Reportable 03/19/17 06:56 Hemoglobin C Crystals Not Reportable 03/19/17 06:56 Schistocytes Not Reportable 03/19/17 06:56 Malaria parasites Not Reportable 03/19/17 06:56 [place] Bodies Not Reportable 03/19/17 06:56 Hem Pathologist Commnt No 03/19/17 06:56 PT 12.2 Sec. (12.2-14.9) 03/18/17 10:32 INR 0.91 (0.87-1.13) 03/18/17 10:32 Sodium 136 mmol/L (137-145) L 03/19/17 06:56 Potassium 3.0 mmol/L (3.6-5.0) L 03/19/17 06:56 Chloride 99.1 mmol/L (98-107) 03/19/17 06:56 Carbon Dioxide 24 mmol/L (22-30) 03/19/17 06:56 Anion Gap 16 mmol/L 03/19/17 06:56 BUN 14 mg/dL (7-17) 03/19/17 06:56 Creatinine 0.5 mg/dL (0.7-1.2) L 03/19/17 06:56 Estimated GFR > 60 ml/min 03/19/17 06:56 BUN/Creatinine Ratio 28.00 % 03/19/17 06:56 Glucose 116 mg/dL (65-100) H 03/19/17 06:56 Lactic Acid 1.10 mmol/L (0.7-2.0) 03/18/17 23:54 Calcium 8.3 mg/dL (8.4-10.2) L D 03/19/17 06:56 Total Bilirubin 1.00 mg/dL (0.1-1.2) 03/19/17 06:56 Direct Bilirubin < 0.2 mg/dL (0-0.2) 03/18/17 10:32 AST 17 units/L (5-40) 03/19/17 06:56 ALT 23 units/L (7-56) 03/19/17 06:56 Alkaline Phosphatase 85 units/L (35-129) 03/19/17 06:56 Troponin T < 0.010 ng/mL (0.00-0.029) 03/18/17 08:43 Total Protein 6.7 g/dL (6.3-8.2) D 03/19/17 06:56 Albumin 3.4 g/dL (3.9-5) L 03/19/17 06:56 Albumin/Globulin Ratio 1.0 % 03/19/17 06:56 Lipase 10 units/L (13-60) L 03/18/17 10:32 Urine Color Yellow (Yellow) 03/18/17 12:15 Urine Turbidity Clear (Clear) 03/18/17 12:15 Urine pH 7.0 (5.0-7.0) 03/18/17 12:15 Ur Specific [place] > 1.059 (1.003-1.030) H 03/18/17 12:15 Urine Protein 30 mg/dl mg/dL (Negative) 03/18/17 12:15 Urine Glucose (UA) Neg mg/dL (Negative) 03/18/17 12:15 Urine Ketones Neg mg/dL (Negative) 03/18/17 12:15 Urine Blood Neg (Negative) 03/18/17 12:15 Urine Nitrite Neg (Negative) 03/18/17 12:15 Urine Bilirubin Neg (Negative) 03/18/17 12:15 Urine Urobilinogen < 2.0 mg/dL (<2.0) 03/18/17 12:15 Ur Leukocyte Esterase Neg (Negative) 03/18/17 12:15 Urine WBC (Auto) 1.0 /HPF (0.0-6.0) 03/18/17 12:15 Urine RBC (Auto) 4.0 /HPF (0.0-6.0) 03/18/17 12:15 U Epithel Cells (Auto) 2.0 /HPF (0-13.0) 03/18/17 12:15 Urine Mucus Few /HPF 03/18/17 12:15
[2017-03-19] MEDS ORDERED: KCL 10MEQ/100ML 10 MEQ/100 ML BAG IV SCH (15:00)
[2017-03-19] MEDS ORDERED: K-DUR PO ONE ×2 (15:38→18:40)
[2017-03-19] MEDS: SINGULAIR PO SCH (21:49)
[2017-03-19] MEDS: XANAX PO SCH (21:49)
[2017-03-20] MEDS: DILAUDID IV PRN ×5 (02:08→21:37)
[2017-03-20] MEDS: NACL 0.9% 1000 ML 1,000 ML IV SCH ×4 (02:09→22:44)
[2017-03-20 06:09] LABS: Basophils % (Auto) 0.4 % (0.0-1.8); Eosinophils % (Auto) 3.3 % (0.0-4.3); Hematocrit 34.8 % (30.3-42.9); Hemoglobin 11.4 gm/dl (10.1-14.3); Mean Corpuscular HGB Conc 33 % (30-34); Mean Corpuscular Volume 76 fl (79-97); Platelet Count 270 K/mm3 (140-440); Red Blood Count 4.58 M/mm3 (3.65-5.03); Red Cell Distribution Width 14.4 % (13.2-15.2); White Blood Count 7.2 K/mm3 (4.5-11.0)
[2017-03-20 06:10] LABS: Mean Corpuscular Hemoglobin 25 pg (28-32)
[2017-03-20] MEDS: FLAGYL 500 MG/100 ML 500 MG/100 ML BAG IV SCH (06:19)
[2017-03-20 06:24] LABS: Anion Gap 14 mmol/L; Blood Urea Nitrogen 7 mg/dL (7-17); Calcium 8.6 mg/dL (8.4-10.2); Carbon Dioxide 28 mmol/L (22-30); Chloride 100.1 mmol/L (98-107); Glucose 103 mg/dL (65-100); Potassium 3.4 mmol/L (3.6-5.0); Sodium 139 mmol/L (137-145)
[2017-03-20] MEDS ORDERED: IMODIUM PO PRN (08:00)
--- NOTE | 2017-03-20 08:54 | Anesthesia Day of Surgery ---
Anesthesia Day of Surgery - Day of Surgery Patient Examined: Yes Patient H&P Reviewed: Yes Patient is NPO: Yes
--- NOTE | 2017-03-20 08:54 | Anesthesia Consultation ---
Anesthesia Consult and Med Hx Date of service: 03/20/17 - Airway Anesthetic Teeth Evaluation: Good ROM Head & Neck: Adequate Mental/Hyoid Distance: Adequate Mallampati Class: Class II Intubation Access Assessment: Probably Good - Pulmonary Exam CTA: Yes - Cardiac Exam Cardiac Exam: RRR - Pre-Operative Health Status ASA Pre-Surgery Classification: ASA3 Proposed Anesthetic Plan: MAC - Pulmonary Hx Asthma: Yes (hospital in jun 2016) COPD: Yes Hx Pneumonia: No - Cardiovascular System Hx Hypertension: Yes - Endocrine Hx End Stage Renal Disease: No - Other Systems Hx Obesity: Yes
[2017-03-20] MEDS ORDERED: DIPRIVAN 10 MG/ML IV ONE ×2 (10:37)
[2017-03-20] MEDS ORDERED: WATER FOR IRRIG STERILE IR ONE (11:05)
--- NOTE | 2017-03-20 11:05 | Post Operative Note ---
Pre-op diagnosis: hematemesis Post-op diagnosis: other (mild esophagitis, otherwise normal EGD) Findings: Mild esophagitis, otherwise unremarkable EGD Procedure: EGD Anesthesia: MAC Surgeon: VICKIE RIVERA Estimated blood loss: none Pathology: none Condition: stable Disposition: floor
--- NOTE | 2017-03-20 11:05 | Post Anesthesia Evaluation ---
- Post Anesthesia Evaluation Patient Participated: Yes Airway Patent: Yes Stable Respiratory Function: Yes Nausea/Vomiting: No Temp > 96.8F: Yes Pain Manageable: Yes Adequeate Hydration: Yes Anesthesia Complications: No
--- NOTE | 2017-03-20 11:07 | Event Note ---
Date: 03/20/17 s/p EGD which showed mild esophagitis, otherwise unremarkable. States symptoms are overall improving. Diarrhea is improved, still with some abd soreness, but states abd pain has improved. No further nausea/vomiting. Recommendations: -PPI ac bk -avoid NSAIDs -advance diet as tolerated -okay to d/c from GI stand point if tolerating diet without new/worsening symptoms -pt should f/u in GI clinic after d/c. states last colonoscopy was [address] Gonzalez but she does not recall findings or when she needed next procedure -unclear etiology of small bowel findings on imaging, possibly infectious/ gastroenteritis. clinically improving. Will sign off, please call as needed or with questions.
[2017-03-20] MEDS ORDERED: LEVAQUIN PO SCH (12:00)
[2017-03-20] MEDS ORDERED: PROTONIX PO SCH (12:00)
--- NOTE | 2017-03-20 12:02 | Operative Report ---
PROCEDURE: EGD. PREOPERATIVE DIAGNOSIS: Hematemesis. POSTOPERATIVE DIAGNOSIS: Mild esophagitis, otherwise unremarkable EGD. ANESTHESIA: Monitored anesthesia care. COMPLICATIONS: No immediate complications. ESTIMATED BLOOD LOSS: None. DESCRIPTION OF PROCEDURE: After consent was obtained, the patient was placed in left lateral decubitus position. The standard upper Fujinon endoscope was inserted into the mouth under direct vision and advanced to the second portion of duodenum without difficulty. The patient tolerated the procedure well. The views of the mucosa were good. The patient's vital signs were monitored continuously throughout the procedure. FINDINGS: There was mild esophagitis in the lower third of the esophagus. Otherwise, the esophagus appeared normal. The stomach and duodenum appeared normal. There was bile seen throughout the second portion of duodenum. IMPRESSION: 1. Mild esophagitis, otherwise unremarkable upper endoscopy. RECOMMENDATIONS: 1. Start PPI medication before breakfast daily. 2. Avoid NSAID medications. 3. Follow up in GI clinic after discharge. We will review prior colonoscopy findings and discuss timing of next surveillance colonoscopy based on previous results. 4. The patient appears to be clinically improving, okay to be discharged from GI standpoint. We will sign off. Please call with any questions. JOB# [id number] RENATO/VIET BREWER
[2017-03-20] MEDS: DIOVAN PO SCH (12:47)
[2017-03-20] MEDS: NORVASC PO SCH (12:47)
[2017-03-20] MEDS: HCTZ PO SCH (12:47)
[2017-03-20] MEDS: FLAGYL PO SCH ×2 (14:31→21:37)
--- NOTE | 2017-03-20 17:10 | Progress Note ---
Assessment and Plan Assessment and plan: Sepsis secondary to ileitis -Resolving - Patient is being treated according to sepsis protocol on IV Levaquin and Flagyl -C. difficile is negative -Lactic acid level is normal -Patient started with colitic diet Hematemesis - EGD showing esophagitis - Recommended PPI Hypertension - Continue home medication COPD/asthma - Continue her meds DVT prophylaxis - SCDs because of hematemesis Disposition -Continue inpatient care. History Interval history: Patient was seen and evaluated this morning, abdominal pain is markedly improved. Patient started with clear liquid diet and complaining mild nausea. Hospitalist Physical - Physical exam Narrative exam: Not in cardiopulmonary distress. The patient appeared well nourished and normally developed. Vital signs as documented. Head exam is unremarkable. No scleral icterus . Neck is without jugular venous distension, thyromegaly, or carotid bruits. Lungs are clear to auscultation. Cardiac exam reveals regular rate and Rhythm. Abdominal exam reveals hyperactive bowel sound, diffuse abdominal tenderness with no guarding or rigidity. Extremities are nonedematous and both femoral and pedal pulses are normal. 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 No focal weakness. - Constitutional Vitals: Temp Pulse Resp BP Pulse Ox 99.3 F 73 20 149/75 100 03/20/17 12:50 03/20/17 12:50 03/20/17 12:50 03/20/17 12:50 03/20/17 11:37 Results - Labs CBC & Chem 7: 03/20/17 05:28 03/20/17 05:28 Labs: Laboratory Last Values WBC 7.2 K/mm3 (4.5-11.0) 03/20/17 05:28 RBC 4.58 M/mm3 (3.65-5.03) 03/20/17 05:28 Hgb 11.4 gm/dl (10.1-14.3) 03/20/17 05:28 Hct 34.8 % (30.3-42.9) 03/20/17 05:28 MCV 76 fl (79-97) L 03/20/17 05:28 MCH 25 pg (28-32) L 03/20/17 05:28 MCHC 33 % (30-34) 03/20/17 05:28 RDW 14.4 % (13.2-15.2) 03/20/17 05:28 Plt Count 270 K/mm3 (140-440) 03/20/17 05:28 Lymph % (Auto) 25.8 % (13.4-35.0) 03/20/17 05:28 [place] % (Auto) 14.0 % (0.0-7.3) H 03/20/17 05:28 Eos % (Auto) 3.3 % (0.0-4.3) 03/20/17 05:28 Baso % (Auto) 0.4 % (0.0-1.8) 03/20/17 05:28 Lymph # 1.8 K/mm3 (1.2-5.4) 03/20/17 05:28 [place] # 1.0 K/mm3 (0.0-0.8) H 03/20/17 05:28 Eos # 0.2 K/mm3 (0.0-0.4) 03/20/17 05:28 Baso # 0.0 K/mm3 (0.0-0.1) 03/20/17 05:28 Add Manual Diff Complete 03/19/17 06:56 Total Counted 100 03/19/17 06:56 Seg Neutrophils % 56.5 % (40.0-70.0) 03/20/17 05:28 Seg Neuts % (Manual) 54.0 % (40.0-70.0) 03/19/17 06:56 Band Neutrophils % 6.0 % 03/19/17 06:56 Lymphocytes % (Manual) 26.0 % (13.4-35.0) 03/19/17 06:56 Reactive Lymphs % (Man) 0 % 03/19/17 06:56 Monocytes % (Manual) 13.0 % (0.0-7.3) H 03/19/17 06:56 Eosinophils % (Manual) 1.0 % (0.0-4.3) 03/19/17 06:56 Basophils % (Manual) 0 % (0.0-1.8) 03/19/17 06:56 Metamyelocytes % 0 % 03/19/17 06:56 Myelocytes % 0 % 03/19/17 06:56 Promyelocytes % 0 % 03/19/17 06:56 Blast Cells % 0 % 03/19/17 06:56 Nucleated RBC % Not Reportable 03/19/17 06:56 Seg Neutrophils # 4.1 K/mm3 (1.8-7.7) 03/20/17 05:28 Seg Neutrophils # Man 4.1 K/mm3 (1.8-7.7) 03/19/17 06:56 Band Neutrophils # 0.5 K/mm3 03/19/17 06:56 Lymphocytes # (Manual) 2.0 K/mm3 (1.2-5.4) 03/19/17 06:56 Abs React Lymphs (Man) 0.0 K/mm3 03/19/17 06:56 Monocytes # (Manual) 1.0 K/mm3 (0.0-0.8) H 03/19/17 06:56 Eosinophils # (Manual) 0.1 K/mm3 (0.0-0.4) 03/19/17 06:56 Basophils # (Manual) 0.0 K/mm3 (0.0-0.1) 03/19/17 06:56 Metamyelocytes # 0.0 K/mm3 03/19/17 06:56 Myelocytes # 0.0 K/mm3 03/19/17 06:56 Promyelocytes # 0.0 K/mm3 03/19/17 06:56 Blast Cells # 0.0 K/mm3 03/19/17 06:56 WBC Morphology Not Reportable 03/19/17 06:56 Hypersegmented Neuts Not Reportable 03/19/17 06:56 Hyposegmented Neuts Not Reportable 03/19/17 06:56 Hypogranular Neuts Not Reportable 03/19/17 06:56 Smudge Cells Not Reportable 03/19/17 06:56 Toxic Granulation Not Reportable 03/19/17 06:56 Toxic Vacuolation Not Reportable 03/19/17 06:56 Dohle Bodies Not Reportable 03/19/17 06:56 Pelger-[place]uet Anomaly Not Reportable 03/19/17 06:56 Keri Rods Not Reportable 03/19/17 06:56 Platelet Estimate Appears normal 03/19/17 06:56 Clumped Platelets Not Reportable 03/19/17 06:56 Plt Clumps, EDTA Not Reportable 03/19/17 06:56 Large Platelets Not Reportable 03/19/17 06:56 Giant Platelets Not Reportable 03/19/17 06:56 Platelet Satelliting Not Reportable 03/19/17 06:56 Plt Morphology Comment Not Reportable 03/19/17 06:56 RBC Morphology Not Reportable 03/19/17 06:56 Dimorphic RBCs Not Reportable 03/19/17 06:56 Polychromasia Not Reportable 03/19/17 06:56 Hypochromasia 1+ 03/19/17 06:56 Poikilocytosis Not Reportable 03/19/17 06:56 Anisocytosis Not Reportable 03/19/17 06:56 Microcytosis Not Reportable 03/19/17 06:56 Macrocytosis Not Reportable 03/19/17 06:56 Spherocytes Not Reportable 03/19/17 06:56 Pappenheimer Bodies Not Reportable 03/19/17 06:56 Sickle Cells Not Reportable 03/19/17 06:56 Target Cells Not Reportable 03/19/17 06:56 Tear Drop Cells Not Reportable 03/19/17 06:56 Ovalocytes Not Reportable 03/19/17 06:56 Helmet Cells Not Reportable 03/19/17 06:56 Macario-[place] Bodies Not Reportable 03/19/17 06:56 [place] Rings Not Reportable 03/19/17 06:56 [place] Cells Not Reportable 03/19/17 06:56 Bite Cells Not Reportable 03/19/17 06:56 Crenated Cell Not Reportable 03/19/17 06:56 Elliptocytes Not Reportable 03/19/17 06:56 Acanthocytes (Spur) Not Reportable 03/19/17 06:56 Rouleaux Not Reportable 03/19/17 06:56 Hemoglobin C Crystals Not Reportable 03/19/17 06:56 Schistocytes Not Reportable 03/19/17 06:56 Malaria parasites Not Reportable 03/19/17 06:56 [place] Bodies Not Reportable 03/19/17 06:56 Hem Pathologist Commnt No 03/19/17 06:56 PT 12.2 Sec. (12.2-14.9) 03/18/17 10:32 INR 0.91 (0.87-1.13) 03/18/17 10:32 Sodium 139 mmol/L (137-145) 03/20/17 05:28 Potassium 3.4 mmol/L (3.6-5.0) L 03/20/17 05:28 Chloride 100.1 mmol/L (98-107) 03/20/17 05:28 Carbon Dioxide 28 mmol/L (22-30) 03/20/17 05:28 Anion Gap 14 mmol/L 03/20/17 05:28 BUN 7 mg/dL (7-17) 03/20/17 05:28 Creatinine 0.7 mg/dL (0.7-1.2) 03/20/17 05:28 Estimated GFR > 60 ml/min 03/20/17 05:28 BUN/Creatinine Ratio 10.00 % 03/20/17 05:28 Glucose 103 mg/dL (65-100) H 03/20/17 05:28 Lactic Acid 1.10 mmol/L (0.7-2.0) 03/18/17 23:54 Calcium 8.6 mg/dL (8.4-10.2) 03/20/17 05:28 Total Bilirubin 1.00 mg/dL (0.1-1.2) 03/19/17 06:56 Direct Bilirubin < 0.2 mg/dL (0-0.2) 03/18/17 10:32 AST 17 units/L (5-40) 03/19/17 06:56 ALT 23 units/L (7-56) 03/19/17 06:56 Alkaline Phosphatase 85 units/L (35-129) 03/19/17 06:56 Troponin T < 0.010 ng/mL (0.00-0.029) 03/18/17 08:43 Total Protein 6.7 g/dL (6.3-8.2) D 03/19/17 06:56 Albumin 3.4 g/dL (3.9-5) L 03/19/17 06:56 Albumin/Globulin Ratio 1.0 % 03/19/17 06:56 Lipase 10 units/L (13-60) L 03/18/17 10:32 Urine Color Yellow (Yellow) 03/18/17 12:15 Urine Turbidity Clear (Clear) 03/18/17 12:15 Urine pH 7.0 (5.0-7.0) 03/18/17 12:15 Ur Specific [place] > 1.059 (1.003-1.030) H 03/18/17 12:15 Urine Protein 30 mg/dl mg/dL (Negative) 03/18/17 12:15 Urine Glucose (UA) Neg mg/dL (Negative) 03/18/17 12:15 Urine Ketones Neg mg/dL (Negative) 03/18/17 12:15 Urine Blood Neg (Negative) 03/18/17 12:15 Urine Nitrite Neg (Negative) 03/18/17 12:15 Urine Bilirubin Neg (Negative) 03/18/17 12:15 Urine Urobilinogen < 2.0 mg/dL (<2.0) 03/18/17 12:15 Ur Leukocyte Esterase Neg (Negative) 03/18/17 12:15 Urine WBC (Auto) 1.0 /HPF (0.0-6.0) 03/18/17 12:15 Urine RBC (Auto) 4.0 /HPF (0.0-6.0) 03/18/17 12:15 U Epithel Cells (Auto) 2.0 /HPF (0-13.0) 03/18/17 12:15 Urine Mucus Few /HPF 03/18/17 12:15
[2017-03-20] MEDS ORDERED: K-DUR PO ONE (17:15)
[2017-03-20] MEDS: SINGULAIR PO SCH (21:36)
[2017-03-20] MEDS: XANAX PO SCH (21:36)
[2017-03-21] MEDS: DILAUDID IV PRN (03:06)
[2017-03-21 06:05] LABS: Basophils % (Auto) 0.5 % (0.0-1.8); Eosinophils % (Auto) 2.2 % (0.0-4.3); Hematocrit 35.4 % (30.3-42.9); Hemoglobin 11.5 gm/dl (10.1-14.3); Mean Corpuscular HGB Conc 33 % (30-34); Mean Corpuscular Volume 75 fl (79-97); Platelet Count 280 K/mm3 (140-440); Red Blood Count 4.71 M/mm3 (3.65-5.03); Red Cell Distribution Width 13.9 % (13.2-15.2); White Blood Count 7.9 K/mm3 (4.5-11.0)
[2017-03-21 06:18] LABS: Mean Corpuscular Hemoglobin 24 pg (28-32)
[2017-03-21 06:20] LABS: Anion Gap 17 mmol/L; BUN/Creatinine Ratio 8.33; Blood Urea Nitrogen 5 mg/dL (7-17); Calcium 9.1 mg/dL (8.4-10.2); Carbon Dioxide 28 mmol/L (22-30); Chloride 101.3 mmol/L (98-107); Glucose 106 mg/dL (65-100); Potassium 3.5 mmol/L (3.6-5.0); Sodium 143 mmol/L (137-145)
[2017-03-21] MEDS: FLAGYL PO SCH (06:46)
[2017-03-21 07:55] VITALS: BP 153/89
--- NOTE | 2017-03-21 08:21 | Discharge Summary ---
Providers - Providers Date of Admission: 03/18/17 12:48 Date of discharge: 03/21/17 Attending physician: SHIRA FELDMAN MD 03/18/17 15:06 Consult to Physician [CONS] Routine Consulting Provider: [facility] Reason For Exam: hematemesis Place consult to:: GI Notified:: bill Phone number called:: [phone] Was contact made?: Yes If yes, spoke with:: bill Time called:: 09:28 Primary care physician: KEVIN GORMAN Hospitalization Reason for admission: sepsis, ileitis Condition: Good Pertinent studies: EGD significant for gastritis Hospital course: 61-year-old -[place] female who is looking into those original hospital presented to the emergency department complaining of diffuse abdominal pain that started 2 days ago, crampy, 10 out of 10 in intensity, with no radiation, associated with intractable diarrhea and nausea, occasional vomiting. The diarrhea is watery, no blood mixed, with no relieving or aggravating factors. Patient also complains she has vomiting of blood 2. She is also complaining right-sided chest pain that is subsided by itself. Patient denied fever or chills. Patient was admitted and managed for sepsis 2/2 colitis and was put on IV levaquin and flagyl, GI was consulted and did EGD and showed gastritis. Patient sepsis was getting better and was able tolerate PO intake and discharged home with PO antibiotics and PPI. Patient was advised by GI to have followup with her bacteriology teacher to have an O/P colonoscopy. patient was hypodermically stable at the time of discharge. Patients medications were reviewed at the time of discharge and updated. Patient advised to have follow up with her PCP. Disposition: TO HOME OR SELFCARE Time spent for discharge: 31 minutes - Discharge Diagnoses (1) Abdominal pain Status: Acute Qualifiers: Abdominal location: A (2) SIRS (systemic inflammatory response syndrome) Status: Acute (3) Diabetes mellitus Status: Acute Qualifiers: Diabetes mellitus type: type 2 Diabetes mellitus complication status: without complication Diabetes mellitus complication detail: D Diabetic retinopathy severity: D Proliferative retinopathy type: P Diabetes mellitus macular edema: D Diabetes mellitus ad terminal makeup operator insulin use: without ad terminal makeup operator use Laterality: L Chronic kidney disease stage: C Qualified Code(s): E11.9 - Type 2 diabetes mellitus without complications (4) Hypertension Status: Acute Qualifiers: Hypertension type: essential hypertension Qualified Code(s): I10 - Essential (primary) hypertension (5) Hypoxia Status: Acute Core Measure Documentation - Palliative Care Palliative Care/ Comfort Measures: Not Applicable - Core Measures Any of the following diagnoses?: none Exam - Physical Exam Narrative exam: Not in cardiopulmonary distress. The patient appeared well nourished and normally developed. Vital signs as documented. Head exam is unremarkable. No scleral icterus . Neck is without jugular venous distension, thyromegaly, or carotid bruits. Lungs are clear to auscultation. Cardiac exam reveals regular rate and Rhythm. Abdominal exam nontender, no guarding or rigidity. Extremities are nonedematous and both femoral and pedal pulses are normal. RECLAMATION SUPERVISOR: Alert and oriented 3. No focal weakness. - Constitutional Vitals: Temp Pulse Resp BP Pulse Ox 99.0 F 74 18 153/89 97 03/21/17 07:53 03/21/17 07:53 03/21/17 07:53 03/21/17 07:53 03/21/17 07:53 Plan Activity: no restrictions Weight Bearing Status: Full Weight Bearing Diet: low cholesterol, low salt Follow up with: KEVIN GORMAN MD [Primary Care Provider] - 3-5 Days NALINI LOWRY MD [Staff Physician] - 14 Days Forms: Work/School Release Form Prescriptions: Levofloxacin [Levaquin TAB] 500 mg PO Q24H #7 tablet metroNIDAZOLE [Flagyl TAB] 500 mg PO Q8HR #21 tablet Ondansetron [Zofran ODT TAB] 4 mg PO Q8HR #12 tab.rapdis Pantoprazole [Protonix TAB] 40 mg PO QAM #30 tablet
--- NOTE | 2017-03-27 10:04 | Query- GI Bleeding ---
Deakedar Coley Date:____03/27/2017 Assembly Instructions Writer/CDS:___Bobby/Angie Phone#:___[phone] Exercise your independent professional judgment when responding to query. Questions asked do not imply a particular answer is desired or expected. We greatly appreciate your clarification on this issue. Clinical Documentation States: 61 Year old female was admitted on 03/18/2017. The Discharge summary states "EGD significant for gastritis Hospital course: 61-year-old -[place] female who is looking into [facility] original hospital presented to the emergency department complaining of diffuse abdominal pain that started 2 days ago, crampy, 10 out of 10 in intensity, with no radiation, associated with intractable diarrhea and nausea, occasional vomiting. Patient also complains she has vomiting of blood 2." The Brief Operative note states "Pre-op diagnosis: hematemesis Post-op diagnosis: other (mild esophagitis, otherwise normal EGD) Findings: Mild esophagitis, otherwise unremarkable EGD." Please clarify the Acuity and Etiology of the condition along with associated Anemia as applicable: (please check H/H, patient is not anemic) A. Acuity: [ ] Acute [ ] Acute on Chronic [ ] Chronic B. Etiology - upper GI tract: [ ] Erosive Esophagitis [ ] Angioma [ ] Gastric ulcer [ ] Carmen- Starks tear [ ] Gastric Cancer [ ] Varices [ x] Gastritis: [ ] A.V. Malformations [ ] Acute [ ] Alcoholic [ ] Atrophic [ ] Gastric or duodenal erosions [ ] Unable to determine [ ] Duodenal ulcer [ ] Other: C. Etiology - Lower GI tract 3 [ ] Diverticular disease [ ] Internal hemorrhoids [ ] A.V. Malformations [ ] Colonic polyps [ ] Anal fissures [ ] Ulcerative Proctitis/colitis [ ] Colonic Cancer [ ] Chrons disease [ ] Infectious colitis [ ] Angiodysplasia [ ] Radiation colitis [ ] Aortoenteric fistula [ ] Ischemic colitis [ ] Angioma [ ] Other: [ ] Volvulus [ x] Unable to determine D. Further specify any associated anemia: [ ] Acute [ ] Acute on Chronic [ ] Chronic [ x] Comment/ Explanation:_No anemia Present on Admission: [ ] Yes (Y) [ ] Clinically undeterminable (W) [ x] No (N) Please also document response in your Progress Notes and/or Discharge Summary and indicate if the condition was present on admission. MTDD
== END 2017-03-21 11:17 | disposition home or self-care (01) | DRG 872 ==
LOC: ED 07:19 → 4A 12:48
PROVIDERS: ADMIT Internal Medicine; ATTEND Internal Medicine
PROC: 0DJ08ZZ Inspection of Upper Intestinal Tract, Via Natural or Artificial Opening Endoscopic (ICD-10-PCS; principal; 2017-03-20)
DX: A41.9 Sepsis, unspecified organism (principal); K92.0 Hematemesis; K52.9 Noninfective gastroenteritis and colitis, unspecified; I10 Essential (primary) hypertension; E78.5 Hyperlipidemia, unspecified; K20.9 Esophagitis, unspecified; J44.9 Chronic obstructive pulmonary disease, unspecified; M19.90 Unspecified osteoarthritis, unspecified site; Z96.643 Presence of artificial hip joint, bilateral; Z90.721 Acquired absence of ovaries, unilateral; Z88.8 Allergy status to other drugs, medicaments and biological substances; Z88.1 Allergy status to other antibiotic agents; Z90.710 Acquired absence of both cervix and uterus; Z90.49 Acquired absence of other specified parts of digestive tract; Z87.891 Personal history of nicotine dependence
CPT/HCPCS: 36415; 71010; 71275; 74020; 74177; 80048; 80053; 80074; 81001; 82140; 82270; 82962; 83690; 84484; 85007; 85025; 85610; 87040; 87493; 93005; 93010; 96361; 96365; 96366; 96372; 96375; C9113; J0500; J1170; J1956; J2405; J2704; J3480; J7030; Q9967

== ENCOUNTER 2017-09-20 09:51 | Outpatient (CLI) | payer BC ==
--- NOTE | 2017-09-20 10:52 | XRay Report ---
ROUTINE CHEST, TWO VIEWS: HISTORY: Wheezing. The trachea, heart, mediastinal contour, lung lan and bony thorax are unremarkable. IMPRESSION: Unremarkable chest x-ray.
== END 2017-09-20 09:52 | disposition home or self-care (01) ==
LOC: XRAY 09:51
PROVIDERS: ATTEND Nurse Practitioner Family
DX: R06.2 Wheezing (principal)
CPT/HCPCS: 71046